=== PATIENT | male | born 1945 | race Caucasian/White ===

== ENCOUNTER → 2017-04-17 | Outpatient (CLI) | payer MEDICARE, BC ==
[2017-04-17 16:29] LABS: CREATININE 1.26 mg/dl (0.61-1.24)
[2017-04-17 16:29] LABS: BLOOD UREA NITROGEN 19 mg/dl (7-20)
== END | disposition home or self-care (01) ==
LOC: LAB 15:05
DX: S09.90XA Unspecified injury of head, initial encounter (principal); X58.XXXA Exposure to other specified factors, initial encounter; R51 Headache; R42 Dizziness and giddiness
CPT/HCPCS: 70450; 82565; 84520